=== PATIENT | female | born 1960 | race Caucasian/White ===

== ENCOUNTER → 2017-07-24 | Outpatient (CLI) | payer BC ==
[~2017-07-24] MED LIST: AMOCLA875 PO; ASPI325 PO; ASPI81EC; ASPI81EC PO; ATOR20; ATOR20 PO; ATOR40TA PO; CITA20 PO; CLIN300 PO; CLOP75; DOCU100 PO; EZET10; GABA300 PO; HYDACE25S PR; HYDACE5 PO; LACT10SY PO; MAGCIT300 PO; MELO7.5 PO; NAPR550 PO; NITR100CA PO; OXYACE5T PO; PENVK500 PO; Percocet 5-3251 EACH PO; RXNAPNA550 PO; RXTRAM50 PO; TRAM50 PO; Zofran Odt4 MG SL; Zofran4 MG PO
[2017-07-24 12:55] LABS: Hematocrit 41.8 % (33.0-51.0); Hemoglobin 14.8 g/dL (11.5-16.0); Mean Corpuscular HGB 32.9 pg (26.0-34.0); Mean Corpuscular HGB Conc 35.4 g/dL (31.5-36.5); Mean Corpuscular Volume 93 fL (80-100); Mean Platelet Volume 11.4 fL (9.1-12.4); Platelet Count 265 K/mm3 (150-400); RDW Coefficient Variation 12.5 % (11.7-14.2); White Blood Cell Count 10.58 K/mm3 (4.00-11.30)
[2017-07-24 13:18] LABS: BASOPHILS PERCENT MAN 0 % (0-2); EOSINOPHILS PERCENT MAN 0 % (0-6); LYMPHOCYTES % ATYPICAL MANUAL 20 % (0-0); LYMPHOCYTES ABSOLUTE MAN 5.81 K/mm3 (0.84-5.20); LYMPHOCYTES PERCENT MAN 35 % (21-46); MONOCYTES ABSOLUTE MAN 0.52 K/mm3 (0.16-1.47); MONOCYTES PERCENT MAN 5 % (4-13); NEUTROPHILS ABSOLUTE MAN 4.23 K/mm3 (1.96-9.15); SEG NEUTROPHILS PERCENT MAN 40 % (41-73); TOTAL CELLS COUNTED 100
[2017-07-24 13:28] LABS: Alanine Aminotransfer (ALT/SGP 65 U/L (12-78); Albumin, Blood 3.9 g/dL (3.4-5.0); Alk Phos 99 U/L (50-136); Anion Gap 7 mmol/L (6-16); Aspartate Aminotrans (AST/SGOT 43 U/L (12-37); Bilirubin, Total 0.7 mg/dL (0.1-1.0); Blood Urea Nitrogen 10 mg/dL (8-24); CO2, Blood 27 mmol/L (21-32); Chloride, Blood 108 mmol/L (98-108); Creatinine, Blood 0.77 mg/dL (0.40-1.00); Globulin, Blood 3.8 g/dL (2.2-4.0); Glomerular Filtration Rate >60 (60-); Glucose, Blood 75 mg/dL (70-99); Potassium, Blood 3.7 mmol/L (3.5-5.5); Sodium, Blood 142 mmol/L (136-145); Total Protein, Blood 7.7 g/dL (6.4-8.2)
== END | disposition home or self-care (01) ==
LOC: LAB SHORT 12:43 → LAB 12:43
PROVIDERS: Nurse Practitioner
DX: R10.811 Right upper quadrant abdominal tenderness (principal)
CPT/HCPCS: 80053; 85025

== ENCOUNTER → 2018-01-22 | Outpatient (CLI) | payer BC | LOC: LAB SHORT 12:10 → LAB 12:10 | DX: N30.00 Acute cystitis without hematuria (principal) | CPT/HCPCS: 87077; 87086; 87186 ==

== ENCOUNTER → 2018-06-23 | Outpatient (CLI) | payer BC ==
[~2018-06-23] MED LIST changes: +SERT25 PO
[2018-06-23 18:17] LABS: Hematocrit 43.3 % (33.0-51.0); Hemoglobin 14.8 g/dL (11.5-16.0); Mean Corpuscular HGB Conc 34.2 g/dL (31.5-36.5); Mean Corpuscular Volume 94 fL (80-100); Mean Platelet Volume 11.4 fL (9.1-12.4); Platelet Count 293 K/mm3 (150-400); RDW Coefficient Variation 12.8 % (11.7-14.2); RDW Standard Deviation 43.9 fL (35.1-46.3); Red Blood Cell Count 4.62 M/mm3 (3.80-5.20); White Blood Cell Count 11.37 K/mm3 (4.00-11.30)
[2018-06-23 19:06] LABS: BASOPHILS ABSOLUTE MAN 0.22 K/mm3 (0.00-0.23); BASOPHILS PERCENT MAN 2 % (0-2); EOSINOPHILS ABSOLUTE MAN 0.11 K/mm3 (0.00-0.68); EOSINOPHILS PERCENT MAN 1 % (0-6); LYMPHOCYTES % ATYPICAL MANUAL 6 % (0-0); LYMPHOCYTES ABSOLUTE MAN 6.48 K/mm3 (0.84-5.20); LYMPHOCYTES PERCENT MAN 51 % (21-46); MONOCYTES ABSOLUTE MAN 1.02 K/mm3 (0.16-1.47); MONOCYTES PERCENT MAN 9 % (4-13); NEUTROPHILS ABSOLUTE MAN 3.52 K/mm3 (1.96-9.15); SEG NEUTROPHILS PERCENT MAN 31 % (41-73); TOTAL CELLS COUNTED 100
== END ==
LOC: LAB SHORT 17:56 → LAB 17:56
PROVIDERS: Emergency Medicine
DX: R50.9 Fever, unspecified (principal)
CPT/HCPCS: 85025

== ENCOUNTER → 2018-06-24 | Outpatient (CLI) | payer BC | END | disposition home or self-care (01) | LOC: LAB SHORT 18:09 → LAB 18:09 | DX: R30.0 Dysuria (principal) | CPT/HCPCS: 87077; 87086; 87186 ==

== ENCOUNTER → 2019-02-26 | Outpatient (CLI) | payer BC | END | disposition home or self-care (01) | LOC: LAB SHORT 18:51 → LAB 18:51 | DX: R30.0 Dysuria (principal) | CPT/HCPCS: 87077; 87086; 87186 ==

== ENCOUNTER 2019-12-04 10:30 | Day surgery (SDC) | payer BC ==
--- NOTE | 2019-12-04 13:05 | NUR ---
PT'S VSS HAVE BEEN STABLE. NO C/O PAIN OR HEADACHED. SITE IS [facility]. RN CALLED KARIE IN RADIOLOGY TO CONSULT ABOUT LETTING THE PT HAVE AN EARLY DISCHARGE. DUE TO THE STABILITY OF THE PT SHE WAS RELEASED. Patient up to Ambulate independently. Gait steady. Discharge instructions reviewed with patient. Patient verbalizes understanding. Copy given to patient to take home.
== END 2019-12-04 23:14 | disposition home or self-care (01) ==
LOC: RAD 10:30
DX: M48.061 Spinal stenosis, lumbar region without neurogenic claudication (principal); E78.00 Pure hypercholesterolemia, unspecified; E66.9 Obesity, unspecified; F32.9 Major depressive disorder, single episode, unspecified; Z87.891 Personal history of nicotine dependence; Z79.82 Long term (current) use of aspirin; Z79.899 Other long term (current) drug therapy; Z88.8 Allergy status to other drugs, medicaments and biological substances; Z91.041 Radiographic dye allergy status; Z68.41 Body mass index [BMI] 40.0-44.9, adult
CPT/HCPCS: 62304; 72132; Q9966

== ENCOUNTER 2021-10-06 09:50 | Day surgery (SDC) | payer BC ==
[~2021-10-06] VITALS: Ht 162.6 cm; Wt 100.2 kg
[2021-10-06] MEDS ORDERED: ATEN25 (10:34)
== END 2021-10-06 12:16 | disposition home or self-care (01) ==
LOC: ORSCSDS 09:50
PROVIDERS: Internal Medicine Gastroenterology
PROC: 0DBK8ZX Excision of Ascending Colon, Via Natural or Artificial Opening Endoscopic, Diagnostic (ICD-10-PCS; principal; 2021-10-06 11:00)
PROC: 0DBM8ZX Excision of Descending Colon, Via Natural or Artificial Opening Endoscopic, Diagnostic (ICD-10-PCS; principal; 2021-10-06 11:00)
PROC: 0DBH8ZX Excision of Cecum, Via Natural or Artificial Opening Endoscopic, Diagnostic (ICD-10-PCS; principal; 2021-10-06 11:00)
PROC: 0DBN8ZX Excision of Sigmoid Colon, Via Natural or Artificial Opening Endoscopic, Diagnostic (ICD-10-PCS; principal; 2021-10-06 11:00)
PROC: 0DBL8ZX Excision of Transverse Colon, Via Natural or Artificial Opening Endoscopic, Diagnostic (ICD-10-PCS; principal; 2021-10-06 11:00)
DX: Z12.11 Encounter for screening for malignant neoplasm of colon (principal); Z86.010 Personal history of colon polyps; D12.3 Benign neoplasm of transverse colon; D12.2 Benign neoplasm of ascending colon; D12.0 Benign neoplasm of cecum; D12.4 Benign neoplasm of descending colon; K63.5 Polyp of colon; K64.8 Other hemorrhoids; K64.4 Residual hemorrhoidal skin tags; E78.5 Hyperlipidemia, unspecified; Z79.82 Long term (current) use of aspirin
CPT/HCPCS: 82947; 88305; J2704

== ENCOUNTER 2022-07-05 12:39 | Emergency (ER) | payer BC ==
[~2022-07-05] VITALS: Ht 162.6 cm; Wt 99.8 kg
[~2022-07-05 12:39] MED LIST changes: +ATEN25
[2022-07-05 13:23] VITALS: BP 164/75
[2022-07-05] MEDS ORDERED: CYCL10 PO (14:54)
[2022-07-05] MEDS ORDERED: Norco 5-325 Ta1 EACH PO (14:54)
== END 2022-07-05 15:12 | disposition home or self-care (01) ==
LOC: ER 12:39
DX: M54.41 Lumbago with sciatica, right side (principal); Z91.041 Radiographic dye allergy status; Z91.048 Other nonmedicinal substance allergy status; Z79.899 Other long term (current) drug therapy; Z79.82 Long term (current) use of aspirin; I10 Essential (primary) hypertension; E78.00 Pure hypercholesterolemia, unspecified; Z87.891 Personal history of nicotine dependence
CPT/HCPCS: 96372; 99283-25; A9270; J1885

== ENCOUNTER 2023-07-09 09:59 | Day surgery (SDC) | payer BC ==
[~2023-07-09] VITALS: Ht 162.6 cm; Wt 87.8 kg
[~2023-07-09 09:59] MED LIST changes: +CYCL10 PO; +Lactated Ringer's 1,000 ML IV ONE; +Norco 5-325 Ta1 EACH PO; +propofoL 50 ML IV ONE
[2023-07-09] MEDS ORDERED: FISH OIL 1,0001 EA10 (10:35)
[2023-07-09] MEDS ORDERED: PROPRANOLOL HCL60 MG (10:35)
[2023-07-09] MEDS ORDERED: Crestor20 MG (10:35)
[2023-07-09] MEDS ORDERED: QUET200 (10:36)
[2023-07-09] MEDS ORDERED: ASCO500 (10:36)
[2023-07-09] MEDS ORDERED: TIZA4 (10:36)
[2023-07-09] MEDS ORDERED: OMEP20ER (10:36)
[2023-07-09] MEDS ORDERED: Lactated Ringer's 1,000 ML IV ONE (10:40)
[2023-07-09] MEDS ORDERED: propofoL 50 ML IV ONE (11:35)
[2023-07-09 12:13] VITALS: BP 125/81
== END 2023-07-09 11:57 | disposition home or self-care (01) ==
LOC: ORSCSDS 09:59
PROVIDERS: Internal Medicine Gastroenterology
PROC: 0DBN8ZX Excision of Sigmoid Colon, Via Natural or Artificial Opening Endoscopic, Diagnostic (ICD-10-PCS; principal; 2023-07-09 12:00)
PROC: 0DB68ZX Excision of Stomach, Via Natural or Artificial Opening Endoscopic, Diagnostic (ICD-10-PCS; principal; 2023-07-09 12:00)
PROC: 0DBK8ZX Excision of Ascending Colon, Via Natural or Artificial Opening Endoscopic, Diagnostic (ICD-10-PCS; principal; 2023-07-09 12:00)
DX: R10.13 Epigastric pain (principal); K29.70 Gastritis, unspecified, without bleeding; D12.5 Benign neoplasm of sigmoid colon; D12.2 Benign neoplasm of ascending colon; Z12.11 Encounter for screening for malignant neoplasm of colon; Z86.010 Personal history of colon polyps
CPT/HCPCS: 88305; 88342; J2704; J7120

== ENCOUNTER → 2024-03-27 | Outpatient (CLI) | payer BC ==
[~2024-03-27] MED LIST changes: +ASCO500; +Crestor20 MG; +FISH OIL 1,0001 EA10; -Lactated Ringer's 1,000 ML IV ONE; +OMEP20ER; +PROPRANOLOL HCL60 MG; +QUET200; +TIZA4; -propofoL 50 ML IV ONE
[2024-03-27 17:06] LABS: BASOPHILS ABSOLUTE AUTO 0.05 K/mm3 (0.00-0.23); BASOPHILS PERCENT AUTO 1 % (0-2); EOSINOPHILS PERCENT AUTO 1 % (0-6); Hematocrit 47.6 % (33.0-51.0); Hemoglobin 16.5 g/dL (11.5-16.0); IMMATURE GRAN ABSOLUTE AUTO 0.04 K/mm3 (0.00-0.10); IMMATURE GRAN PERCENT AUTO 0 % (0-1); LYMPHOCYTES ABSOLUTE AUTO 1.93 K/mm3 (0.84-5.20); LYMPHOCYTES PERCENT AUTO 17 % (21-46); MONOCYTES ABSOLUTE AUTO 0.47 K/mm3 (0.16-1.47); MONOCYTES PERCENT AUTO 4 % (4-13); Mean Corpuscular HGB 30.9 pg (26.0-34.0); Mean Corpuscular HGB Conc 34.7 g/dL (31.5-36.5); Mean Corpuscular Volume 89 fL (80-100); Mean Platelet Volume 11.4 fL (9.1-12.4); NEUTROPHILS ABSOLUTE AUTO 8.48 K/mm3 (1.96-9.15); NEUTROPHILS PERCENT AUTO 77 % (41-73); Platelet Count 276 K/mm3 (150-400); RDW Coefficient Variation 13.1 % (11.7-14.2); RDW Standard Deviation 42.5 fL (35.1-46.3); Red Blood Cell Count 5.34 M/mm3 (3.80-5.20); White Blood Cell Count 11.07 K/mm3 (4.00-11.30)
[2024-03-27 17:16] LABS: Albumin, Blood 4.5 g/dL (3.4-5.0); Calcium, Blood 9.8 mg/dL (8.5-10.1); Creatinine, Blood 1.23 mg/dL (0.40-1.00); Globulin, Blood 4.3 g/dL (2.2-4.0); Potassium, Blood 4.5 mmol/L (3.5-5.5); Total Protein, Blood 8.8 g/dL (6.4-8.2)
== END ==
LOC: LAB 16:54 → LAB SHORT 16:54
PROVIDERS: Physician Assistant
DX: R11.2 Nausea with vomiting, unspecified (principal)
CPT/HCPCS: 80053; 83690; 85025

== ENCOUNTER 2024-07-13 10:36 | Emergency (ER) | payer BC ==
[~2024-07-13] VITALS: Ht 162.6 cm; Wt 90.7 kg
[2024-07-13] MEDS ORDERED: DiphenhydrAMINE HCl 50 MG/ML 1ML Vial IV ONE (12:35)
[2024-07-13] MEDS ORDERED: Ketorolac Tromethamine 15mg Vial IV ONE (12:35)
[2024-07-13] MEDS ORDERED: NS 1,000 ML IV SCH (12:35)
[2024-07-13] MEDS ORDERED: Prochlorperazine Edisylate 10 mg Vial IV ONE (12:35)
[2024-07-13 12:36] LABS: Source, Urine Clean Catch
[2024-07-13 12:42] LABS: Appearance, Urine Hazy (Clear); Bilirubin, Urine Neg (Neg); Blood, Urine 4+ (Neg); Color, Urine Yellow (P-Yellow); Glucose Qualitative, Urine Neg (Neg); Ketones, Urine Neg (Neg); Leukocyte Esterase, Urine 3+ (Neg); Nitrite, Urine Neg (Neg); Protein, Urine 3+ (Neg); Urobilinogen, Urine 1+ (Normal)
[2024-07-13 12:47] LABS: White Blood Cells, Urine 50-100 /hpf (0-5)
[2024-07-13 12:48] LABS: Bacteria Many /hpf; Red Blood Cells, Urine 25-50 /hpf (0-2); Squamous Epithelial Cells Not Seen /hpf (Few)
[2024-07-13] MEDS ORDERED: CefTRIAXone Sodium 1,000 MG in NS 100 ML IV ONE (12:55)
[2024-07-13] MEDS ORDERED: HYDROmorphone HCl/Pf 1MG SYR IV ONE (13:50)
[2024-07-13] MEDS ORDERED: CEFD300 PO (14:04)
[2024-07-13 14:29] VITALS: BP 110/63
== END 2024-07-13 14:11 | disposition home or self-care (01) ==
LOC: ER 10:36
PROVIDERS: Physician Assistant
DX: R51.9 Headache, unspecified (principal); N39.0 Urinary tract infection, site not specified; I10 Essential (primary) hypertension; Z79.82 Long term (current) use of aspirin; Z79.899 Other long term (current) drug therapy
CPT/HCPCS: 81001; 87077; 87086; 87186; 96365; 96375; 99283-25; J0696; J0780; J1171; J1200; J1885; J7030

== ENCOUNTER 2024-07-14 02:31 | Emergency (ER) | payer BC ==
[~2024-07-14] VITALS: Ht 162.6 cm; Wt 90.7 kg
[~2024-07-14 02:31] MED LIST changes: +CEFD300 PO
[2024-07-14 03:03] LABS: BASOPHILS ABSOLUTE AUTO 0.02 K/mm3 (0.00-0.23); BASOPHILS PERCENT AUTO 0 % (0-2); EOSINOPHILS ABSOLUTE AUTO 0.04 K/mm3 (0.00-0.68); EOSINOPHILS PERCENT AUTO 1 % (0-6); Hematocrit 35.7 % (33.0-51.0); Hemoglobin 12.6 g/dL (11.5-16.0); IMMATURE GRAN ABSOLUTE AUTO 0.04 K/mm3 (0.00-0.10); IMMATURE GRAN PERCENT AUTO 1 % (0-1); LYMPHOCYTES ABSOLUTE AUTO 1.81 K/mm3 (0.84-5.20); LYMPHOCYTES PERCENT AUTO 22 % (21-46); MONOCYTES ABSOLUTE AUTO 0.85 K/mm3 (0.16-1.47); MONOCYTES PERCENT AUTO 10 % (4-13); Mean Corpuscular HGB 31.7 pg (26.0-34.0); Mean Corpuscular HGB Conc 35.3 g/dL (31.5-36.5); Mean Corpuscular Volume 90 fL (80-100); Mean Platelet Volume 11.8 fL (9.1-12.4); NEUTROPHILS ABSOLUTE AUTO 5.44 K/mm3 (1.96-9.15); NEUTROPHILS PERCENT AUTO 66 % (41-73); Platelet Count 143 K/mm3 (150-400); RDW Coefficient Variation 12.8 % (11.7-14.2); RDW Standard Deviation 42.4 fL (35.1-46.3); Red Blood Cell Count 3.98 M/mm3 (3.80-5.20)
[2024-07-14 03:19] LABS: Alanine Aminotransfer (ALT/SGP 44 U/L (12-78); Albumin/Globulin Ratio 0.7 (0.8-1.8); Alk Phos 127 U/L (50-136); Anion Gap 9 mmol/L (3-11); Aspartate Aminotrans (AST/SGOT 85 U/L (12-37); Bilirubin, Total 1.2 mg/dL (0.1-1.0); Blood Urea Nitrogen 15 mg/dL (8-24); Bun/Creatinine Ratio 16.8 (12.0-20.0); CO2, Blood 25 mmol/L (21-32); Calcium, Blood 8.5 mg/dL (8.5-10.1); Chloride, Blood 98 mmol/L (98-108); Ethanol (Alcohol), Blood, Med <3 mg/dL; Globulin, Blood 4.4 g/dL (2.2-4.0); Glomerular Filtration Rate 72 (60-); Glucose, Blood 196 mg/dL (70-99); Potassium, Blood 3.8 mmol/L (3.5-5.5); Sodium, Blood 128 mmol/L (136-145); Total Protein, Blood 7.4 g/dL (6.4-8.2)
[2024-07-14 03:45] VITALS: BP 129/87
== END 2024-07-14 03:49 | disposition home or self-care (01) ==
LOC: ER 02:31
PROVIDERS: Student in an Organized Health Care Education/Training Program
DX: R41.0 Disorientation, unspecified (principal); I10 Essential (primary) hypertension; E78.00 Pure hypercholesterolemia, unspecified; Z87.440 Personal history of urinary (tract) infections; Z87.891 Personal history of nicotine dependence; Z79.899 Other long term (current) drug therapy; Z79.82 Long term (current) use of aspirin; Z91.041 Radiographic dye allergy status; Z91.048 Other nonmedicinal substance allergy status
CPT/HCPCS: 80053; 80320; 85025; 93005; 93010; 99285-25

== ENCOUNTER 2025-02-08 10:28 | Day surgery (SDC) | payer BC ==
[~2025-02-08] VITALS: Ht 162.6 cm; Wt 86.8 kg
[~2025-02-08 10:28] MED LIST changes: -ATEN25; +ATEN25 PO; +NS 500 ML IV ONE; -OMEP20ER; +OMEP20ER PO
[2025-02-08] MEDS ORDERED: NS 500 ML IV ONE (10:35)
[2025-02-08] MEDS ORDERED: CeFAZolin Sodium 2,000 MG VIAL ONE (10:52)
[2025-02-08] MEDS ORDERED: SERT100 PO (11:29)
[2025-02-08] MEDS ORDERED: CENTRUM SILVER1 EAC2 PO (11:31)
[2025-02-08] MEDS ORDERED: Midazolam HCl 1MG / ML 2ML Vial ONE (11:44)
[2025-02-08] MEDS ORDERED: FentaNYL Citrate 50 MCG/ML 2 ML Injection ONE (11:44)
[2025-02-08] MEDS ORDERED: Sodium Bicarb 8.4% Inj 1 MEQ/ML 10ML Vial XX ONE (12:12)
[2025-02-08] MEDS ORDERED: Lidocaine 1%-Epineph 1:100000 20 ML MDV INJ ONE (12:12)
[2025-02-08 12:28] VITALS: BP 93/71
--- NOTE | 2025-02-08 12:30 | NUR ---
02/08/25 1230 Yuliana Webb 1222 PT. WAKING UP PULLING OF MASK. PT. 100% ON 8L/MASK. PT. NOW 96% ON RA.
== END 2025-02-08 13:15 | disposition home or self-care (01) ==
LOC: ORSCSDS 10:28
PROVIDERS: Orthopaedic Surgery
PROC: 0LN80ZZ Release Left Hand Tendon, Open Approach (ICD-10-PCS; principal; 2025-02-08 12:00)
DX: M65.322 Trigger finger, left index finger (principal); I10 Essential (primary) hypertension; I25.10 Atherosclerotic heart disease of native coronary artery without angina pectoris; Z79.82 Long term (current) use of aspirin; Z79.899 Other long term (current) drug therapy; Z87.891 Personal history of nicotine dependence
CPT/HCPCS: 82947; J0690; J2250; J2704; J3010; J7040